=== PATIENT | female | born 1980 | race Caucasian/White ===

== ENCOUNTER 2016-12-08 18:54 | Emergency (ER) | payer SELFPAY ==
[~2016-12-08] VITALS: Ht 167.6 cm; Wt 127.0 kg
[2016-12-08 19:49] VITALS: BP 121/92
--- NOTE | 2016-12-08 22:19 | NUR ---
PT TAKEN TO BED 6
--- NOTE | 2016-12-08 22:20 | NUR ---
36F BIB W/C/O PAINFUL URINATION, CHILLS AND PRODUCTIVE COUGH X1WK. DENIES ANY N/V/D. HX:UTI. NO S/S OF DISTRESS AT THE MOMENT.
--- NOTE | 2016-12-08 22:30 | NUR ---
Dr. Billingsley evaluating patient at bedside.
[2016-12-08 22:44] VITALS: BP 116/83
--- NOTE | 2016-12-08 22:44 | NUR ---
Patient discharged with v/s stable. Written and verbal after care instructions given and explained. Patient alert, oriented and verbalized understanding of instructions. Ambulatory with steady gait. All questions addressed prior to discharge. ID band removed. Patient advised to follow up with PMD OR RETURN TO ER IF CONDITION WORSENS. Rx of given. Patient educated on indication of medication including possible reaction and side effects. Opportunity to ask questions provided and answered.
== END 2016-12-08 22:44 | disposition home or self-care (01) ==
LOC: MED 18:54
DX: N39.0 Urinary tract infection, site not specified (principal); J20.9 Acute bronchitis, unspecified

== ENCOUNTER 2021-11-25 18:26 | Emergency (ER) | payer SELFPAY ==
[~2021-11-25] VITALS: Ht 167.6 cm; Wt 156.0 kg
[2021-11-25 18:31] VITALS: BP 182/109
--- NOTE | 2021-11-25 18:35 | NUR ---
41 Y/O FEMALE AMBULATED TO BED 5, C/O ABD PAIN [id number] 06/13 RADIATES TO RUQ. DENIES N/V/D . DENIES FEVER/CHILLS. PROVIDED PT WITH URINE CUP PT AMBULATED TO RESTROOM. DENIES PMH NKDA
--- NOTE | 2021-11-25 19:17 | NUR ---
REPORT RECEIVED FROM NGHIA NOLASCO. CONTINUITY OF PT CARE AT THIS TIME.
--- NOTE | 2021-11-25 19:18 | NUR ---
Pt report given to NGHIA HANDLEY. Transfer of care at this time.
--- NOTE | 2021-11-25 19:19 | NUR ---
URINE WALKED DOWN TO LAB
[2021-11-25 19:22] LABS: BASOPHILS # (AUTO) 0.1 K/uL (0.00-0.22); BASOPHILS % (AUTO) 0.8 % (0.0-2.0); EOSINOPHILS # (AUTO) 0.2 K/uL (0-0.4); EOSINOPHILS % (AUTO) 2.4 % (0.0-4.0); HEMOGLOBIN 14.7 g/dL (12.0-16.0); LYMPHOCYTES # (AUTO) 2.8 K/uL (2.5-16.5); LYMPHOCYTES % (AUTO) 30.5 % (20.5-51.1); MEAN CORPUSCULAR HEMOGLOBIN 29 pg (27-31); MEAN CORPUSCULAR HGB CONC 34 g/dL (33-37); MEAN CORPUSCULAR VOLUME 86.2 fL (80-94); MONOCYTES # (AUTO) 0.4 K/uL (0.8-1.0); MONOCYTES % (AUTO) 4.9 % (1.7-9.3); NEUTROPHILS # (AUTO) 5.7 K/uL (1.8-7.7); NEUTROPHILS % (AUTO) 61.4 % (42.2-75.2); PLATELET COUNT (AUTO) 325 K/uL (140-450); RED BLOOD CELL COUNT(AUTO) 4.99 MIL/uL (4.20-5.40); RED CELL DISTRIBUTION WIDTH 13.5 % (11.6-13.7); WHITE BLOOD COUNT (AUTO) 9.2 K/uL (4.8-10.8)
--- NOTE | 2021-11-25 19:26 | NUR ---
PT SITTING IN CHAIR. DENIES ANY PAIN AT THIS TIME, NAUSEA OR OTHER SYMPTOMS. BREATHING EVEN AND UNLABORED, NAD NOTED WILL CONTINUE TO MONITOR.
[2021-11-25 19:28] LABS: BILIRUBIN,URINE NEGATIVE (NEGATIVE); BLOOD, URINE TRACE-I (NEGATIVE); COLOR,URINE YELLOW (YELLOW); LEUKOCYTE ESTERASE ,URINE NEGATIVE (NEGATIVE); NITRITE, URINE POSITIVE (NEGATIVE); UGLUCOSE 3+ (NEGATIVE)
[2021-11-25 19:30] LABS: APPEARANCE,URINE HAZY (CLEAR)
[2021-11-25 19:37] LABS: ALBUMIN 3.5 g/dL (3.4-5.0); ANION GAP 13.4 (8-16); CARBON DIOXIDE 26.5 mmol/L (21-32); CREATININE 0.9 mg/dL (0.6-1.3); POTASSIUM 3.9 mmol/L (3.5-5.1); TOTAL BILIRUBIN 0.3 mg/dL (0.0-1.0)
--- NOTE | 2021-11-25 19:38 | NUR ---
PT TO CT VIA WHEELCHAIR.
[2021-11-25 19:50] LABS: RBC,URINE 0-5 /HPF (0-5); WBC,URINE 0-5 /HPF (0-5); YEAST,URINE Moderate /HPF (None Seen)
[2021-11-25] MEDS ORDERED: NITR100C7 PO (20:37)
[2021-11-25] MEDS ORDERED: NAPR-54 PO (20:37)
[2021-11-25 20:45] VITALS: BP 159/83
--- NOTE | 2021-11-25 20:45 | NUR ---
Patient discharged with v/s stable. Written and verbal after care instructions given and explained. Patient alert, oriented and verbalized understanding of instructions. Ambulatory with steady gait. All questions addressed prior to discharge. ID band removed. Patient advised to follow up with PMD. Rx of naproxen, macrobid given. Patient educated on indication of medication including possible reaction and side effects. Opportunity to ask questions provided and answered.
--- NOTE | 2021-11-25 20:49 | NUR ---
Chance sharma in [facility] - 11/25/21 at 0 by [email or web address] The patient's care was reviewed and supervised by Clarice Barnes RN.
== END 2021-11-25 20:45 | disposition home or self-care (01) ==
LOC: MED 18:26
DX: N39.0 Urinary tract infection, site not specified (principal); Z90.49 Acquired absence of other specified parts of digestive tract; Z79.899 Other long term (current) drug therapy
CPT/HCPCS: 36415; 80053; 81001; 81025; 83690; 85025; 87086; 99284

== ENCOUNTER 2022-03-30 20:39 | Emergency (ER) | payer SELFPAY ==
[~2022-03-30] VITALS: Ht 157.5 cm; Wt 127.5 kg
[~2022-03-30 20:39] MED LIST: NAPR-54 PO; NITR100C7 PO
[2022-03-30 21:03] VITALS: BP 125/78
[2022-03-31] MEDS ORDERED: CEPH-588 PO (01:56)
[2022-03-31 02:00] VITALS: BP 128/78
[2022-03-31 02:08] LABS: APPEARANCE,URINE SL CLOUDY (CLEAR); BILIRUBIN,URINE NEGATIVE (NEGATIVE); BLOOD, URINE 1+ (NEGATIVE); COLOR,URINE YELLOW (YELLOW); LEUKOCYTE ESTERASE ,URINE 3+ (NEGATIVE); NITRITE, URINE NEGATIVE (NEGATIVE); PH,URINE 5.5 (5.0-9.0); UGLUCOSE NEGATIVE (NEGATIVE)
[2022-03-31 02:13] LABS: RBC,URINE 0-5 /HPF (0-5)
== END 2022-03-31 02:00 | disposition home or self-care (01) ==
LOC: MED 20:39
DX: N39.0 Urinary tract infection, site not specified (principal); R30.0 Dysuria; R10.30 Lower abdominal pain, unspecified; E11.9 Type 2 diabetes mellitus without complications; Z79.899 Other long term (current) drug therapy
CPT/HCPCS: 81001; 81025; 87086; 99283

== ENCOUNTER 2023-06-23 17:01 | Emergency (ER) | payer SELFPAY ==
[~2023-06-23] VITALS: Ht 160 cm; Wt 130.7 kg
[~2023-06-23 17:01] MED LIST changes: +CEPH-588 PO
[2023-06-23 17:19] VITALS: BP 156/94; PULSE 66; RESP 18; TEMP 98.2; O2SAT 97
[2023-06-23] MEDS ORDERED: NACL 0.9% 1,000 ML IV ONE (18:50)
[2023-06-23 19:08] LABS: BASOPHILS # (AUTO) 0.1 K/uL (0.00-0.22); BASOPHILS % (AUTO) 0.6 % (0.0-2.0); EOSINOPHILS # (AUTO) 0.2 K/uL (0-0.4); EOSINOPHILS % (AUTO) 2.1 % (0.0-4.0); HEMATOCRIT 41.1 % (36-48); HEMOGLOBIN 13.9 g/dL (12.0-16.0); LYMPHOCYTES # (AUTO) 2.5 K/uL (2.5-16.5); LYMPHOCYTES % (AUTO) 26.7 % (20.5-51.1); MEAN CORPUSCULAR HEMOGLOBIN 30 pg (27-31); MEAN CORPUSCULAR HGB CONC 34 g/dL (33-37); MEAN CORPUSCULAR VOLUME 88.2 fL (80-94); MONOCYTES # (AUTO) 0.4 K/uL (0.8-1.0); MONOCYTES % (AUTO) 4.4 % (1.7-9.3); NEUTROPHILS # (AUTO) 6.2 K/uL (1.8-7.7); NEUTROPHILS % (AUTO) 66.2 % (42.2-75.2); PLATELET COUNT (AUTO) 321 K/uL (140-450); RED BLOOD CELL COUNT(AUTO) 4.66 MIL/uL (4.20-5.40); RED CELL DISTRIBUTION WIDTH 12.9 % (11.6-13.7); WHITE BLOOD COUNT (AUTO) 9.3 K/uL (4.8-10.8)
[2023-06-23 19:26] LABS: ALBUMIN 3.7 g/dL (3.4-5.0); CALCIUM 9.4 mg/dL (8.5-10.1); CREATININE 0.7 mg/dL (0.6-1.3); TOTAL BILIRUBIN 0.4 mg/dL (0.0-1.0); TOTAL PROTEIN, SERUM 7.3 g/dL (6.4-8.2)
[2023-06-23 19:29] LABS: APPEARANCE,URINE CLEAR (CLEAR); BILIRUBIN,URINE NEGATIVE (NEGATIVE); BLOOD, URINE TRACE-I (NEGATIVE); COLOR,URINE YELLOW (YELLOW); LEUKOCYTE ESTERASE ,URINE 1+ (NEGATIVE); NITRITE, URINE NEGATIVE (NEGATIVE); PROTEIN,URINE NEGATIVE (NEGATIVE); UGLUCOSE NEGATIVE (NEGATIVE); UROBILINOGEN,URINE 0.2 EU/dL (0.2 - 1)
[2023-06-23 19:35] VITALS: O2SAT 98
[2023-06-23] MEDS ORDERED: SULF-59 PO (19:53)
[2023-06-23] MEDS ORDERED: cefTRIAXone 1,000 MG VIAL ONE (20:15)
[2023-06-23 21:26] VITALS: BP 149/66; PULSE 66; RESP 18; TEMP 98.2; O2SAT 98
== END 2023-06-23 21:26 | disposition home or self-care (01) ==
LOC: MED 17:01
DX: R00.2 Palpitations (principal); N39.0 Urinary tract infection, site not specified; Z79.899 Other long term (current) drug therapy
CPT/HCPCS: 36415; 71046; 80053; 81003; 81025; 83880; 84443; 84484; 85025; 87086; 93005; 96361; 96365; 99285; J0696; J7030